=== PATIENT | female | born 1950 | race Caucasian/White ===

== ENCOUNTER 2018-04-22 01:46 | Emergency (ER) | payer MEDICARE, OTHER ==
--- NOTE | 2018-04-22 01:47 | ER Report ---
History and Physical Time Seen By MD: 01:48 HPI/ROS CHIEF COMPLAINT: syncope HISTORY OF PRESENT ILLNESS: This is a 68 year old female. I was seeing her as a patient her in the ER and while talking to the , the patient began to feel lightheaded. She was seated in a chair in the exam room. She started to look pale and was dizzy. She passed out and started to have some convulsive movements. I helped support her in the chair and called for help. The episode of unconsciousness and stiffness with convulsions lasted about 30 secon ds and then she immediately regained her level of alertness and was able to tell me where she was and why she was here. She knew she had passed out. She did not bite her tongue. She did have bladder incontinence. She has never had seizures in the past. She feels that she was tired and had several glasses of wine and felt unsteady when her had woken them up to come to the ER tonight. She has no headache, vision changes, or dizziness now. She has no chest pain or palpitations and denies cardiac problems. No shortness of breath. No recent illness. No numbness in face, arms or legs. No weakness. Allergies: Coded Allergies: No Known Drug Allergies (Unverified , 04/22/18) Home Meds Reported Medications Aldesleukin (Proleukin) 22 Million Unit Vial, 1 VIAL INJ TIMES YEARLY 04/22/18 Reviewed Nurses Notes: Yes Constitutional Vital Sign - Last 24 Hours 04/22/18 04/22/18 04/22/18 04/22/18 01:46 01:47 02:00 02:01 Pulse 85 81 Resp 17 15 B/P (MAP) 115/71 (86) 108/73 (85) Pulse Ox 93 93 04/22/18 04/22/18 04/22/18 04/22/18 02:13 02:16 02:36 02:46 Temp 97.4 Pulse 80 77 Resp 11 20 17 B/P (MAP) 108/73 121/72 (88) Pulse Ox 92 94 O2 Delivery Room Air 04/22/18 04/22/18 04/22/18 04/22/18 03:00 03:16 03:30 03:31 Pulse 75 79 Resp 13 B/P (MAP) 124/77 (93) 116/73 (87) Pulse Ox 91 04/22/18 04/22/18 04/22/18 04/22/18 03:40 04:00 04:10 04:30 Pulse 76 71 Resp 7 B/P (MAP) 131/85 (100) 135/84 (101) Pulse Ox 97 Physical Exam General Appearance: The patient is alert. No acute distress. Non-toxic in appearance. Eyes: Pupils are equal, round. Reactive to light. No pallor, injection or icterus. Extraocular movements are intact. ENT: Mucous membranes are moist. Normal oral mucosa. Posterior oropharynx is normal. Normal tympanic membranes and canals. Neck: Supple and non tender. No lymphadenopathy. Respiratory: Lungs are clear to auscultation. Cardiovascular: Regular rate and rhythm. No murmurs, gallops or rubs. Normal capillary refill. No edema. Gastrointestinal: Abdomen is soft and non tender. Nondistended. Normal active bowel sounds. No costovertebral angle tenderness with percussion. Neurological: Alert and oriented x3. Cranial nerves II through XII show no acute deficits on my exam. No focal neurologic deficits in the extremities. Skin: Warm and dry. No rashes. Musculoskeletal: Extremities are nontender. No tenderness in palpation of the cervical, thoracic and lumbar spine. DIFFERENTIAL DIAGNOSIS: After history and physical exam, differential diagnosis was considered for syncope including but not limited to vasovagal syncope, arrhythmia, dehydration, and blood loss. Medical Decision Making Data Points Result Diagram: 04/22/18 0208 04/22/18 0208 Laboratory Hematology Test 04/22/18 02:08 Red Blood Count 4.63 M/uL (4.17-5.56) Mean Corpuscular Volume 91.8 fL (80.0-96.0) Mean Corpuscular Hemoglobin 31.4 pg (26.0-33.0) Mean Corpuscular Hemoglobin Concent 34.2 g/dL (32.0-36.0) Red Cell Distribution Width 14.4 % (11.5-14.5) Mean Platelet Volume 7.8 fL (7.2-11.1) Neutrophils (%) (Auto) % (39.4-72.5) Lymphocytes (%) (Auto) % (17.6-49.6) Monocytes (%) (Auto) % (4.1-12.4) Eosinophils (%) (Auto) % (0.4-6.7) Basophils (%) (Auto) % (0.3-1.4) Nucleated RBC Relative Count (auto) /100WBC Neutrophils # (Auto) K/uL (2.0-7.4) Lymphocytes # (Auto) K/uL (1.3-3.6) Monocytes # (Auto) K/uL (0.3-1.0) Eosinophils # (Auto) K/uL (0.0-0.5) Basophils # (Auto) K/uL (0.0-0.1) Nucleated RBC Absolute Count (auto) K/uL Neutrophils % (Manual) 22 % (39.4-72.5) Band Neutrophils % 5 % Lymphocytes % (Manual) 34 % (17.6-49.6) Atypical Lymphocytes % 22 % Monocytes % (Manual) 10 % (4.1-12.4) Eosinophils % (Manual) 5 % (0.4-6.7) Basophils % (Manual) 2 % (0.3-1.4) Peripheral Blood Smear Yes Y/N Sodium Level 136 mmol/L (137-145) Potassium Level 3.6 mmol/L (3.5-5.0) Chloride Level 99 mmol/L (98-107) Carbon Dioxide Level 25 mmol/L (22-31) Blood Urea Nitrogen 17 mg/dl (7-18) Creatinine 0.90 mg/dl (0.52-1.04) Glomerular Filtration Rate Calc > 60.0 Random Glucose 116 mg/dl (75-110) Calcium Level 9.0 mg/dl (8.4-10.2) Total Bilirubin 0.2 mg/dl (0.2-1.3) Aspartate Amino Transf (AST/SGOT) 25 U/L (0-35) Alanine Aminotransferase (ALT/SGPT) 30 U/L (0-56) Alkaline Phosphatase 35 U/L (0-126) Troponin I < 0.012 ng/ml Total Protein 6.5 g/dl (6.3-8.2) Albumin 4.1 g/dl (3.5-5.0) Chemistry Test 04/22/18 02:08 White Blood Count 7.7 k/uL (4.5-11.0) Red Blood Count 4.63 M/uL (4.17-5.56) Hemoglobin 14.5 g/dL (12.0-16.0) Hematocrit 42.5 % (34.0-47.0) Mean Corpuscular Volume 91.8 fL (80.0-96.0) Mean Corpuscular Hemoglobin 31.4 pg (26.0-33.0) Mean Corpuscular Hemoglobin Concent 34.2 g/dL (32.0-36.0) Red Cell Distribution Width 14.4 % (11.5-14.5) Platelet Count 287 K/uL (150-450) Mean Platelet Volume 7.8 fL (7.2-11.1) Neutrophils (%) (Auto) % (39.4-72.5) Lymphocytes (%) (Auto) % (17.6-49.6) Monocytes (%) (Auto) % (4.1-12.4) Eosinophils (%) (Auto) % (0.4-6.7) Basophils (%) (Auto) % (0.3-1.4) Nucleated RBC Relative Count (auto) /100WBC Neutrophils # (Auto) K/uL (2.0-7.4) Lymphocytes # (Auto) K/uL (1.3-3.6) Monocytes # (Auto) K/uL (0.3-1.0) Eosinophils # (Auto) K/uL (0.0-0.5) Basophils # (Auto) K/uL (0.0-0.1) Nucleated RBC Absolute Count (auto) K/uL Neutrophils % (Manual) 22 % (39.4-72.5) Band Neutrophils % 5 % Lymphocytes % (Manual) 34 % (17.6-49.6) Atypical Lymphocytes % 22 % Monocytes % (Manual) 10 % (4.1-12.4) Eosinophils % (Manual) 5 % (0.4-6.7) Basophils % (Manual) 2 % (0.3-1.4) Peripheral Blood Smear Yes Y/N Glomerular Filtration Rate Calc > 60.0 Calcium Level 9.0 mg/dl (8.4-10.2) Total Bilirubin 0.2 mg/dl (0.2-1.3) Aspartate Amino Transf (AST/SGOT) 25 U/L (0-35) Alanine Aminotransferase (ALT/SGPT) 30 U/L (0-56) Alkaline Phosphatase 35 U/L (0-126) Troponin I < 0.012 ng/ml Total Protein 6.5 g/dl (6.3-8.2) Albumin 4.1 g/dl (3.5-5.0) EKG/Imaging EKG Interpretation 12 lead EKG: Rhythm: normal sinus rhythm, rate 80 [place]: normal QRS: normal ST segments: normal Imaging CT Head without contrast Indication: Syncope. Comparison: None available Technique: Axial CT images were obtained through the brain from the skull base to the vertex without administration of IV contrast. Reformatted coronal and sagittal images were also obtained. One of the following dose optimization techniques was utilized in the performance of this exam: Automated exposure control; adjustment of the mA and/or kV according to the patient's size; or use of an iterative reconstruction technique. Specific details can be referenced in the facility's radiology CT exam operational policy. Findings: No evidence of mass, mass effect, or midline shift. No acute intracranial hemorrhage or acute territorial infarction. There is preservation of the erwin-white matter junction. The ventricles are normal in size and are symmetric. There are symmetric, prominent CSF spaces along the bilateral frontal lobes extending along the parietal lobes at the vertex. Findings are consistent with bilateral frontal hygromas/chronic subdurals. No sulcal effacement. The visualized paranasal sinuses and mastoid air cells are clear. IMPRESSION: 1. No acute intracranial abnormality. . 2. Symmetric bilateral frontal hygromas/chronic subdurals. Report Dictated By: Hermelindo Rudd at 04/22/2018 2:37 AM CHEST SINGLE AP Indication: Syncopal episode. Comparison: None available Findings: The lungs are clear. No pneumothorax or pleural effusion. Heart size is normal. Scattered atherosclerosis noted within the aortic arch. IMPRESSION: 1. No acute cardiopulmonary process. Report Dictated By: Hermelindo Rudd at 04/22/2018 2:59 AM ED Course/Re-evaluation Clinical Indication for ER IV: Hydration, IV Access ED Course Negative workup after syncopal episode. See above. She feels fine at this time. We reviewed the workup findings. She will follow-up with her doctor upon return to [place]. Decision to Disposition Date: Apr 22, 2018 Decision to Disposition Time: 04:30 Depart Departure Latest Vital Signs Vital Signs Date Time Temp Pulse Resp B/P (MAP) Pulse Ox O2 Delivery O2 Flow Rate FiO2 04/22/18 04:30 135/84 (101) 04/22/18 04:10 71 7 97 04/22/18 02:13 97.4 Room Air Impression: Primary Impression: Syncope Condition: Improved Disposition: HOME OR SELF-CARE Patient Instructions: Syncope (ED) Additional Instructions: Rest and increase fluid intake. Follow-up with your regular doctor in [place]. Problem Qualifiers Primary Impression: Syncope Syncope type: unspecified Qualified Codes: R55 - Syncope and collapse VELASQUEZ OLIVAS MD Apr 22, 2018 01:47
[2018-04-22 02:18] LABS: PLATELET COUNT, AUTOMATED 287 K/uL (150-450)
[2018-04-22] MEDS ORDERED: [UNRECOGNIZED DRUG - CODE] INJ (02:41)
--- NOTE | 2018-04-22 02:47 | RADIOLOGY IMAGING REPORT ---
FACILITY: [facility] PATIENT NAME: Savana Lloyd : 1950 MR: [id number] V: [id number] EXAM DATE: ORDERING PHYSICIAN: VELASQUEZ OLIVAS TECHNOLOGIST: Location: [facility] Patient: Savana Lloyd : 1950 Visit/Account:[id number] Date of Sevice: 04/22/2018 CT Head without contrast Indication: Syncope. Comparison: None available Technique: Axial CT images were obtained through the brain from the skull base to the vertex without administration of IV contrast. Reformatted coronal and sagittal images were also obtained. One of the following dose optimization techniques was utilized in the performance of this exam: Autom ated exposure control; adjustment of the mA and/or kV according to the patient's size; or use of an i terative reconstruction technique. Specific details can be referenced in the facility's radiology C T exam operational policy. Findings: No evidence of mass, mass effect, or midline shift. No acute intracranial hemorrhage or acute territorial infarction. There is preservation of the erwin-white matter junction. The ventricles are normal in size and are symmetric. There are symmetric, prominent CSF spaces along the bilateral frontal lobes extending along the parie marta lobes at the vertex. Findings are consistent with bilateral frontal hygromas/chronic subdurals. N o sulcal effacement. The visualized paranasal sinuses and mastoid air cells are clear. IMPRESSION: 1. No acute intracranial abnormality. . 2. Symmetric bilateral frontal hygromas/chronic subdurals. Report Dictated By: Hermelindo Rudd at 04/22/2018 2:37 AM Report E-Signed By: Hermelindo Rudd at 04/22/2018 2:43 AM WSN:[id number]
--- NOTE | 2018-04-22 03:21 | RADIOLOGY IMAGING REPORT ---
FACILITY: [facility] [place] PATIENT NAME: Savana Lloyd : 1950 MR: [id number] V: [id number] EXAM DATE: ORDERING PHYSICIAN: VELASQUEZ OLIVAS TECHNOLOGIST: Location: [facility] [place] Patient: Savana Lloyd : 1950 Visit/Account:[id number] Date of Sevice: 04/22/2018 CHEST SINGLE AP Indication: Syncopal episode. Comparison: None available Findings: The lungs are clear. No pneumothorax or pleural effusion. Heart size is normal. Scattered atherosclerosis noted within the aortic arch. IMPRESSION: 1. No acute cardiopulmonary process. Report Dictated By: Hermelindo Rudd at 04/22/2018 2:59 AM Report E-Signed By: Hermelindo Rudd at 04/22/2018 3:00 AM WSN:[id number]
[2018-04-22 04:30] VITALS: BP 135/84
--- NOTE | 2018-04-22 07:52 | EKG ---
[place] [facility] [place] NAME: CARINA JOHNSON : [id number] MR: [id number] V: [id number] EXAM DATE: ORDERING PHYSICIAN: VELASQUEZ OLIVAS TECHNOLOGIST: SIGRID Test Reason : SYNCOPE Blood Pressure : / mmHG Vent. Rate : 080 BPM Atrial Rate : 080 BPM P-R Int : 176 ms QRS Dur : 082 ms QT Int : 382 ms P-R-T Axes : 068 058 041 degrees QTc Int : 440 ms Sinus rhythm Anteroseptal infarct , age undetermined ST elevation V1-3 Abnormal ECG No previous ECGs available Confirmed by ELAN DEL REAL ([id number] on 04/22/2018 11:43:09 AM Referred By: Confirmed By:ELAN DEL REAL
== END 2018-04-22 04:45 | disposition home or self-care (01) ==
LOC: ER 02:52
DX: R55 Syncope and collapse (principal); Y92.230 Patient room in hospital as the place of occurrence of the external cause
CPT/HCPCS: 36416; 70450; 71045; 82040; 82247; 82310; 82374; 82435; 82565; 82947; 82948; 84075; 84132; 84155; 84295; 84450; 84460; 84484; 84520; 85025; 93005; 99284